=== PATIENT | male | born 2000 | race Caucasian/White ===

== ENCOUNTER 2022-03-22 13:36 | Emergency (ER) | payer OTHER ==
[2022-03-22 13:54] VITALS: BP 132/79; PULSE 79; TEMP 97.8; BMI 34.2
[2022-03-22] MEDS ORDERED: ACETAMINOPHEN 500 MG TABLET (FP) PO ONE (15:18)
[2022-03-22] MEDS ORDERED: DIPHTH,PERTUSS(ACELL),TET 0.5 ML DISP.SYRIN IM ONE ×2 (15:19→15:25)
[2022-03-22] MEDS ORDERED: ACETAMINOPHEN 500 MG TABLET (FP) ONE (15:25)
[2022-03-22] MEDS ORDERED: BACITRACIN 15 GM TUBE TOPICAL OINTMENT TP ONE (15:47)
[2022-03-22] MEDS ORDERED: BACITRACIN 15 GM TUBE TOPICAL OINTMENT ONE (15:51)
== END 2022-03-22 15:55 | disposition home or self-care (01) ==
LOC: JERFT 13:36
PROC: 3E0234Z Introduction of Serum, Toxoid and Vaccine into Muscle, Percutaneous Approach (ICD-10-PCS; principal; 2022-03-22)
DX: S60.012A Contusion of left thumb without damage to nail, initial encounter (principal); W27.8XXA Contact with other nonpowered hand tool, initial encounter
CPT/HCPCS: 73130-TC-LT-FY; 90471; 90715; 99284-25